=== PATIENT | male | born 1990 | race Caucasian/White ===

== ENCOUNTER 2020-02-08 09:05 | Emergency (ER) | payer BC, OTHER ==
[2020-02-08 09:17] VITALS: BP 124/79; PULSE 76; RESP 18; TEMP 98.3
[2020-02-08] MEDS ORDERED: FLUORESCEIN STRIPS 1 MG STRIP RIGHT EYE ONE (09:36)
--- NOTE | 2020-02-08 10:05 | ED ---
General Adult HPI - General Chief complaint: Skin/Abscess/Foreign Body Stated complaint: eyelid swelling/rash Time Seen by Provider: 02/08/20 09:29 Source: patient, RN notes reviewed Mode of arrival: ambulatory Limitations: no limitations - History of Present Illness Initial comments: Patient is a pleasant 29-year-old male presenting to the emergency department with complaints of rash. Onset of symptoms was 2 days ago. Patient states there is some discomfort of the rash however does not hurt to touch. Patient did notice some swelling in front of the right ear as well. Patient states rash is mostly right forehead however did have some mild discomfort right posterior head earlier. Patient did notice some swelling of the upper eyelid this morn ing. Patient states his right eye does look a little bit red to him and has had some minimal clear drainage from it. Patient unclear whether or not there could be some minimal decreased vision from the right eye. No history of similar symptoms previously. No trauma. - Related Data Previous Rx's Medication Instructions Recorded valACYclovir HCL [Valtrex] 1 tab PO TID 7 Days #21 tablet 02/08/20 Allergies Allergy/AdvReac Type Severity Reaction Status Date / Time amoxicillin [From Augmentin] AdvReac Nausea & Verified 02/08/20 09:17 Vomiting clavulanic acid AdvReac Nausea & Verified 02/08/20 09:17 [From Augmentin] Vomiting Review of Systems ROS Statement: Those systems with pertinent positive or pertinent negative responses have been documented in the HPI. ROS Other: All systems not noted in ROS Statement are negative. Constitutional: Denies: fever Eyes: Reports: as per HPI ENT: Denies: ear pain Respiratory: Denies: cough Cardiovascular: Denies: chest pain Endocrine: Denies: fatigue Gastrointestinal: Denies: abdominal pain Genitourinary: Denies: dysuria Musculoskeletal: Denies: back pain Skin: Reports: as per HPI, rash Neurological: Denies: weakness Past Medical History Past Medical History: No Reported History History of Any Multi-Drug Resistant Organisms: None Reported Past Surgical History: Hernia Repair Past Psychological History: No Psychological Hx Reported Smoking Status: Never smoker Past Alcohol Use History: None Reported Past Drug Use History: None Reported General Exam Limitations: no limitations General appearance: alert, in no apparent distress Head exam: Present: atraumatic Eye exam: Present: scleral icterus (Minimal on the right), other (Right upper eyelid with mild swelling. Flurosyn stain with small area of uptake near the iris in the 10 o'clock position. Too small to see if there is dendritic component) ENT exam: Present: normal oropharynx, TM's normal bilaterally Neck exam: Present: normal inspection Respiratory exam: Present: normal lung sounds bilaterally Cardiovascular Exam: Present: regular rate, normal rhythm GI/Abdominal exam: Present: soft. Absent: tenderness Extremities exam: Present: normal inspection Neurological exam: Present: alert, CN II-XII intact Psychiatric exam: Present: normal affect, normal mood Skin exam: Present: rash (Right forehead with several areas of small erythema) Course Vital Signs 02/08/20 09:14 Temperature 98.3 F Pulse Rate 76 Respiratory 18 Rate Blood Pressure 124/79 O2 Sat by Pulse 98 Oximetry Medical Decision Making - Medical Decision Making Patient is made aware of suspicion for shingles with possible herpes ophthalmicus involvement. Patient is advised of need for close follow-up with ophthalmology. Case was discussed with Dr. Coelho who will follow up with patient in the office at this time. Patient also advised to stay away from his baby secondary to risk of transmission Disposition Clinical Impression: Shingles Disposition: HOME SELF-CARE Condition: Stable Instructions (If sedation given, give patient instructions): Shingles (ED) Additional Instructions: Please head directly over to Dr. Coelho's office right now. This is in [facility] [address], [facility] [place] [employer], near [facility]. Please also follow-up with primary care physician in the next day or 2 for recheck. Return for visual changes, increased rash or fevers, worsening symptoms or any other concerns. Prescriptions sent to [facility] Prescriptions: valACYclovir HCL [Valtrex] 1 tab PO TID 7 Days #21 tablet Is patient prescribed a controlled substance at d/c from ED?: No Referrals: Divine Montenegro MD [Primary Care Provider] - 1-2 days Willian Murphy MD [STAFF PHYSICIAN] - 1-2 days Time of Disposition: 10:03
== END 2020-02-08 10:11 | disposition home or self-care (01) ==
LOC: EC 09:05
DX: B02.9 Zoster without complications (principal); Z88.0 Allergy status to penicillin; Z88.1 Allergy status to other antibiotic agents
CPT/HCPCS: 99282